=== PATIENT | male | born 1945 | race Caucasian/White ===

== ENCOUNTER 2023-04-14 14:45 | Outpatient (RCR) | payer MEDICARE, BC, SELFPAY | END 2023-04-14 15:24 | disposition home or self-care (01) | PROVIDERS: PCP Student in an Organized Health Care Education/Training Program; Visit Provider Student in an Organized Health Care Education/Training Program | DX: M25.511 Pain in right shoulder (principal); G89.29 Other chronic pain; Z74.09 Other reduced mobility; R53.1 Weakness; Z51.89 Encounter for other specified aftercare | CPT/HCPCS: 97110; 97161 ==

== ENCOUNTER 2023-12-21 12:56 | Emergency (ER) | payer MEDICARE, BC, SELFPAY ==
[2023-12-21 13:00] VITALS: BP 133/77; PULSE 84; RESP 14; TEMP 36.6; O2SAT 91; BMI 23.7
--- NOTE | 2023-12-21 13:05 | ED_ITS ---
HPI - General Adult General Time Seen by Provider: 13:05 Date Seen: 12/21/23 Chief complaint: Cough Stated complaint: Coughing, sore throat Time Seen by Provider: 12/21/23 12:59 Source: patient and RN notes reviewed Mode of arrival: ambulatory Limitations: no limitations History of Present Illness HPI narrative: This 78-year-old male is coming in with cough for about 6 weeks, feels it is not improving and may be worsening. He feels like cough is on the verge of being productive. He notes lots of postnasal drainage. He does have a history of sinusitis. There been no fevers or chills. Was evaluated about 10 days ago in his primary care office, a resident reportedly listen to him and thought it was just post viral coughing. He did not take a COVID test at the beginning. This started with cold type symptoms. He is short of breath with it now, more dyspnea on exertion. Just walking across the room he will feel short of breath. There is no chest pain with this. He denies any chronic cardiopulmonary issues. He has had no travel. He has hives with aspirin and ibuprofen. He did get Tessalon Perles prescribed at the recent doctor visit, really has not noticed much help. I do see is on lisinopril. Related Data Home Medications ?Medication ?Instructions ?Recorded ?Confirmed amlodipine 5 mg tablet 5 mg PO DAILY 12/21/23 12/21/23 chlorthalidone 25 mg tablet 25 mg PO DAILY 12/21/23 12/21/23 lisinopril 20 mg tablet 20 mg PO DAILY 12/21/23 12/21/23 Allergies Allergy/AdvReac Type Severity Reaction Status Date / Time aspirin Allergy Mild Verified 12/21/23 13:05 ibuprofen Allergy Mild Verified 12/21/23 13:05 Review of Systems Status of ROS: Reports: 6 or more systems reviewed and unremarkable except as noted in History and below [facility] Social History Smoking Status: Former smoker What tobacco products do you use: pipe Do you use any of these nicotine containing products: None How often do you have a drink containing alcohol: monthly or less AUDIT-C Alcohol total score: 1 Non-prescribed substance use: denies use Exam Const: Vital Signs, click to edit/add: Vital Signs - 24 hr 12/21/23 13:00 12/21/23 13:53 12/21/23 15:01 Temperature 97.8 F Pulse Rate [Pulse Oximeter] 84 Respiratory Rate 14 Blood Pressure [Ri ght Upper Arm] 133/77 Pulse Oximetry 91 94 94 Oxygen Delivery Me thod Room Air Room Air This 78-year-old male is alert, interactive, no apparent distress. He is able to speak in complete sentences, speech is normal. Pupils are equal and round, s clerae clear, conjugate gaze. Face is atraumatic, normal function. Neck is supple, no jugular venous distension, no adenopathy or masses noted. Lungs are clear on the left side, no wheezing or crackles, normal breath sounds. On the right base, diminished breath sounds in almost a squeak when listening, diminished about fdc up as far as breath sounds. I do not hear crackles. There is no tachypnea. CV regular rate and rhythm, no murmur, normal S1-S2, no S3-S4. He has no lower extremity edema. Documenting provider has reviewed patient's vital signs: yes Course Course ED Course: We are simply going to start with a chest x-ray given the abnormal breath sounds on the right. Will have nursing staff ambulate with pulse oximetry to see what is heart rate and oxygen status do. Based on these, will decide on labs and any possible further imaging. There could be a fusion, need to consider underlying worsening infectious etiology or other intra parenchymal/pulmonary possibilities. Doubt that this is cardiac or CHF. Sinusitis is a consideration given his postnasal drainage. Reevaluation(s) Time of Reevaluation #1: 13:26 Reevaluation #1: With ambulation, patient started coughing, heart rate went up to 110, lowest oxygenation was 88%. His chest x-ray looks to have some right-sided changes at the base. We are going to proceed with chest CT PE protocol to rule out any possible underlying pulmonary embolus. Will do triple viral swab as he may need hospitalization and the hospitalist will want this information. Will do full complement of labs, he will be monitored on pulse oximetry. Will make sure his oxygenation rebounds after exercise. This certainly could be pneumonia but need to rule out other underlying complications like pulmonary embolus. Will also get an EKG and troponin. He does not rule out for perk, thus do feel that we need to consider a complicating pulmonary embolus here which we will rule in or out with chest CT PE protocol. There certainly is probably pneumonia based on the initial chest x-ray and his presentation. Time of Reevaluation #2: 15:08 Reevaluation #2: Have reviewed with patient and his whom is now here that there is pneumonia in the right base of his lung, no pulmonary emboli identified. We will initiate 1 g IV Rocephin. Will discharge on Augmentin and Z-Bony from [facility]. Will do the 10 day course of Augmentin and standard Z-Bony. Vital Signs Vital signs: Initial Vital Signs Temperature 97.8 F 12/21/23 13:00 Temperature Source Temporal Artery Scan 12/21/23 13:00 Pulse Rate 84 12/21/23 13:00 Respiratory Rate 14 12/21/23 13:00 Blood Pressure 133/77 12/21/23 13:00 Blood Pressure Mean 95 12/21/23 13:00 Blood Pressure Position Sitting 12/21/23 13:00 Pulse Oximetry 91 12/21/23 13:00 Oxygen Delivery Method Room Air 12/21/23 13:00 Vital Signs Temperature 97.8 F 12/21/23 13:00 Pulse Rate 84 12/21/23 13:00 Respiratory Rate 14 12/21/23 13:00 Blood Pressure 133/77 12/21/23 13:00 Pulse Oximetry 91 12/21/23 13:00 Oxygen Delivery Method Room Air 12/21/23 13:00 Temperature 97.8 F 12/21/23 13:00 Pulse Rate 84 12/21/23 13:00 Respiratory Rate 14 12/21/23 13:00 Blood Pressure 133/77 12/21/23 13:00 Pulse Oximetry 94 12/21/23 15:01 Oxygen Delivery Method Room Air 12/21/23 15:01 Medical Decision Making Lab Data Lab results reviewed: Yes I reviewed the patient's lab results Labs: Lab Results 12/21/23 Range/Units 13:35 WBC 14.47 H (4.50-11.00) K/uL RBC 4.49 (4.30-5.90) m/uL Hgb 11.2 L (13.5-17.5) gm/dL Hct 34.9 L (37.0-53.0) % MCV 78 L (80-100) fL MCH 25 L (26-34) pg MCHC 32 (32-36) gm/dL RDW Coeff of Dorina 16.4 H (11.5-15.5) % Plt Count 479 H (140-440) K/uL Neut % (Auto) 82.0 H (42.0-72.0) % Lymph % (Auto) 10.7 L (20-44) % Duchesne % (Auto) 6.1 (0.0-11.0) % Eos % (Auto) 0.6 (0.0-7.0) % Baso % (Auto) 0.3 (0.0-3.0) % Neut # (Auto) 11.90 H (1.7-7.0) K/uL Lymph # (Auto) 1.50 (0.90-2.90) K/uL Duchesne # (Auto) 0.90 (0.00-0.90) K/UL Eos # (Auto) 0.10 (0.00-0.50) K/uL Baso # (Auto) 0.00 (0.00-0.30) K/uL Abs Immat Gran (auto) 0.00 (0.00-0.30) K/uL Imm/Tot Granulo (auto) 0.3 % D-Dimer Quant (PE/DVT) 1.77 H (0.00-0.50) ug/ml VBG pH 7.425 (7.32-7.43) VBG pCO2 39 L (40-50) mmHG VBG pO2 30.9 (25-47) mmHG VBG HCO3 26 (21-28) mmol/L Sodium 133 L (135-149) mmol/L Potassium 3.5 L (3.6-5.1) mmol/L Chloride 96 (96-114) mmol/L Carbon Dioxide 24 (20-32) mmol/L Anion Gap 13 (7-15) mEq/L BUN 27 (7-30) mg/dL Creatinine 1.1 (0.5-1.5) mg/dL Estimated Creat Clear 67.22 Estimated GFR 69 ml/min Glucose 122 H (60-115) mg/dL Lactate 1.6 (0.5-1.9) mmol/L Calcium 9.4 (8.4-10.6) mg/dL Total Bilirubin 0.8 (0.1-1.5) mg/dL AST 107 H (12-35) U/L ALT 136 H (4-50) U/L Alkaline Phosphatase 208 H (40-150) U/L Troponin I < 0.01 L (0.01-0.04) ng/mL C-Reactive Protein 19.0 H (0.5-1.0) mg/dL NT-Pro-B Natriuret Pep 59 pg/mL Total Protein 7.8 (6.0-8.3) g/dL Albumin 3.8 (3.3-5.0) g/dL Procalcitonin 0.19 (<0.50) ng/mL SARS-CoV-2 (PCR) Negative SARS-CoV-2 (Negative) Influenza Type A (PCR) Negative PCR FLU A (Negative) Influenza Type B (PCR) Negative PCR FLU B (Negative) RSV (PCR) Negative PCR RSV (Negative) POC Creatinine 1.2 (0.6-1.3) mg/dl Imaging Data Chest x-ray: Attestation: I have reviewed the pertinent imaging results. My impression: I do appreciate a right base infiltrate on my preliminary review of this chest x-ray. Radiologist's impression: Patient: [facility] Facility:?[facility] Patient ID:?[id number] Site Patient ID:?[id number]. Site :?[id number] Study:?XRay-Chest 2 VIEW-12/21/2023 1:23:57 PM Ordering Physician:?Yareyl Jolley Final Report: INDICATION: Cough 6 weeks, abnormal breath sound right side, abnormal breath sounds right side TECHNIQUE: Chest radiograph 2 views COMPARISON: None FINDINGS: Mediastinum: The mediastinum is normal in appearance. The heart silhouette is normal in size and morphology. Lung: Airspace infiltrates are present in the right lung base, likely due to pneumonia. No sign of pleural effusion seen. No pneumothorax is identified. Bone and Soft tissue: Unremarkable for age. IMPRESSION: 1. Airspace infiltrates are present in the right lung base, likely due to pneumonia. Dictated by Rigoberto Kenny MD @ 12/21/2023 1:30:37 PM Dictated by: Rigoberto Kenny MD @ 12/21/2023 13:30:40 (Electronic Signature) CT scan - chest: Attestation: I have reviewed the pertinent imaging results. My impression: Did visualize his CT, can certainly see the right lower lobe infiltrate, will await Radiology over-read for pulmonary embolus and other potential findings. Radiologist's impression: Patient: SANDRA THOMPSON Facility:?[facility] Patient ID:?[id number] Site Patient ID:?[id number]. Site :?1945 Study:?CT-Chest Angio PE STUDY-12/21/2023 2:28:13 PM Ordering Physician:?Yarely Jolley Final Report: INDICATION: Dyspnea on exertion, hypoxia, cough TECHNIQUE: CT chest pulmonary angiogram acquired with IV contrast. 95 cc of Isovue 370 contrast was administered intravenously. Multi planer/3D MIP reformats were created. COMPARISON: None FINDINGS: The heart is normal in size. No filling defects are seen within the pulmonary arteries to suggest a pulmonary embolus. Main pulmonary artery is normal in caliber. Right lower lobe consolidation, suggestive of pneumonia. The remainder of the lungs are clear. Negative for pleural effusion or pneumothorax. The visualized upper abdomen is unremarkable. IMPRESSION: 1. Negative for pulmonary embolus. 2. Right lower lobe consolidation. Dictated by Zahra Lovelace MD @ 12/21/2023 2:58:46 PM Please note that all CT scans at this facility use dose modulation, iterative reconstruction, and/or weight-based dosing when appropriate to reduce radiation dose to as low as reasonably achievable. Dictated by: Zahra Lovelace MD @ 12/21/2023 14:58:52 (Electronic Signature) ECG Data Attestation: I personally reviewed and interpreted this ECG as follows: (Normal sinus rhythm, 93 beats per minute. No ischemic change, no infarct noted.) Prior ECG tracings: not available for review Discharge Plan Discharge Clinical Impression: Community acquired pneumonia Instructions: Community Acquired Pneumonia (ED) Additional Instructions: Start Augmentin tonight and take as prescribed. You can start the Z-Bony right away. Dual coverage with antibiotics is recommended in community-acquired pneumonia per guidelines. Can use [id number] medicines for symptom control. Keep your scheduled follow-up in clinic for December 29 with her primary care provider. In the meantime if you feel your worsening at any point, develops fevers, have worsening cough, worsening shortness of breath or difficulty breathing, any new or concerning symptoms associated with your pneumonia, return to the ER for further evaluation. You may need to do your activities slowly right now so as to not attacks your breathing. You have minimal hypoxia with activity but at rest your oxygenation is excellent. I would advise you to keep continue walking but do so slowly, maybe do smaller increments of slow walking more frequently. Your breathing should improve as the pneumonia is appropriately treated. Activity Level: Activity as Tolerated Prescriptions: No Action lisinopril 20 mg tablet 20 mg PO DAILY chlorthalidone 25 mg tablet 25 mg PO DAILY amlodipine 5 mg tablet 5 mg PO DAILY Follow Up/Referrals: DA BRODERICK DO [Primary Care Provider] - Stand Alone Forms: [employer] Info Instructions
--- NOTE | 2023-12-21 13:13 | CRLHL7_ITS ---
For Patients: As a result of the Cures Act, medical imaging exams and procedure reports are released immediately into your electronic medical record. You may view this report before your referring provider. If you have questions, please contact your health care provider. INDICATION: Cough 6 weeks, abnormal breath sound right side, abnormal breath sounds right side TECHNIQUE: Chest radiograph 2 views COMPARISON: None FINDINGS: Mediastinum: The mediastinum is normal in appearance. The heart silhouette is normal in size and morphology. Lung: Airspace infiltrates are present in the right lung base, likely due to pneumonia. No sign of pleural effusion seen. No pneumothorax is identified. Bone and Soft tissue: Unremarkable for age. IMPRESSION: 1. Airspace infiltrates are present in the right lung base, likely due to pneumonia. Dictated by Rigoberto Kenny MD @ 12/21/2023 1:30:37 PM Dictated by: Rigoberto Kenny MD @ 12/21/2023 13:30:40 (Electronically Signed)
--- NOTE | 2023-12-21 13:25 | CRLHL7_ITS ---
For Patients: As a result of the Century Cures Act, medical imaging exams and procedure reports are released immediately into your electronic medical record. You may view this report before your referring provider. If you have questions, please contact your health care provider. INDICATION: Dyspnea on exertion, hypoxia, cough TECHNIQUE: CT chest pulmonary angiogram acquired with IV contrast. 95 cc of Isovue 370 contrast was administered intravenously. Multi planer/3D MIP reformats were created. COMPARISON: None FINDINGS: The heart is normal in size. No filling defects are seen within the pulmonary arteries to suggest a pulmonary embolus. Main pulmonary artery is normal in caliber. Right lower lobe consolidation, suggestive of pneumonia. The remainder of the lungs are clear. Negative for pleural effusion or pneumothorax. The visualized upper abdomen is unremarkable. IMPRESSION: 1. Negative for pulmonary embolus. 2. Right lower lobe consolidation. Dictated by Zahra Lovelace MD @ 12/21/2023 2:58:46 PM Please note that all CT scans at this facility use dose modulation, iterative reconstruction, and/or weight-based dosing when appropriate to reduce radiation dose to as low as reasonably achievable. Dictated by: Zahra Lovelace MD @ 12/21/2023 14:58:52 (Electronically Signed)
[2023-12-21 13:45] LABS: HCO3 VBG 26 mmol/L (21-28); Lactate* 1.6 mmol/L (0.5-1.9); PCO2 VBG 39 mmHG (40-50); PO2 VBG 30.9 mmHG (25-47); pH VBG 7.425 (7.32-7.43)
[2023-12-21 13:48] LABS: Basophils Percent Auto 0.3 % (0.0-3.0); Eosinophils Percent Auto 0.6 % (0.0-7.0); Hematocrit 34.9 % (37.0-53.0); Hemoglobin* 11.2 gm/dL (13.5-17.5); Immature Granulocytes Pct Auto 0.3 %; Lymphocytes Percent Auto 10.7 % (20-44); Mean Corpuscular HGB Conc 32 gm/dL (32-36); Mean Corpuscular Hemoglobin 25 pg (26-34); Mean Corpuscular Volume 78 fL (80-100); Monocytes Percent Auto 6.1 % (0.0-11.0); Platelet Count* 479 K/uL (140-440); RDW Coefficient of Variation % 16.4 % (11.5-15.5); Red Blood Count 4.49 m/uL (4.30-5.90); White Blood Count* 14.47 K/uL (4.50-11.00)
[2023-12-21 13:50] LABS: Creatinine, Point-of-Care* 1.2 mg/dl (0.6-1.3)
[2023-12-21 13:51] LABS: Slide Review Reflex No
[2023-12-21 13:53] VITALS: O2SAT 94
[2023-12-21 14:04] LABS: Albumin* 3.8 g/dL (3.3-5.0); Chloride* 96 mmol/L (96-114)
[2023-12-21 14:05] LABS: Potassium* 3.5 mmol/L (3.6-5.1); Sodium* 133 mmol/L (135-149)
[2023-12-21 14:07] LABS: Alkaline Phosphatase* 208 U/L (40-150); Anion Gap 13 mEq/L (7-15); Aspartate Amino Transferase* 107 U/L (12-35); Bilirubin Total* 0.8 mg/dL (0.1-1.5); Carbon Dioxide* 24 mmol/L (20-32); Creatinine* 1.1 mg/dL (0.5-1.5); Est. Creatinine Clearance* 67.22; Estimated Glomerular Filt Rate 69 ml/min; Total Protein* 7.8 g/dL (6.0-8.3)
[2023-12-21 14:08] LABS: Alanine Aminotransferase* 136 U/L (4-50); Blood Urea Nitrogen* 27 mg/dL (7-30); Calcium* 9.4 mg/dL (8.4-10.6); Glucose* 122 mg/dL (60-115)
[2023-12-21 14:09] LABS: D Dimer Quantitative* 1.77 ug/ml (0.00-0.50)
[2023-12-21 14:24] LABS: NT Pro B Type NatriureticPept* 59 pg/mL; Procalcitonin* 0.19 ng/mL (<0.50); Troponin I* < 0.01 ng/mL (0.01-0.04)
[2023-12-21 14:26] LABS: PCR FLU A Negative PCR FLU A (Negative); PCR FLU B Negative PCR FLU B (Negative); PCR RSV Negative PCR RSV (Negative); SARS PCR* Negative SARS-CoV-2 (Negative)
[2023-12-21 15:01] VITALS: O2SAT 94
[2023-12-21] MEDS: cefTRIAXone 1 GM in 0.9 % SODIUM CHLORIDE Mini-bag 100 ML IVPB (15:13)
== END 2023-12-21 15:57 | disposition home or self-care (01) ==
PROVIDERS: Emergency Provider Family Medicine; PCP Student in an Organized Health Care Education/Training Program
DX: J18.9 Pneumonia, unspecified organism (principal)
CPT/HCPCS: 36415; 71046; 71275; 80053; 82565; 82803; 83605; 83880; 84145; 84484; 85025; 85379; 86140; 87631; 93005; 94761; 96365; 99284; 99285; J0696; Q9967